=== PATIENT | male | born 1970 | race Caucasian/White ===

== ENCOUNTER 2017-06-29 11:30 | Emergency (ER) | payer SELFPAY ==
[~2017-06-29] VITALS: Ht 172.7 cm; Wt 110.0 kg
[~2017-06-29 11:30] MED LIST: GABA100C4 PO; SERO100T PO; SERO300T PO
[2017-06-29 11:33] VITALS: BP 116/74; PULSE 84; RESP 16; TEMP 98.5; O2SAT 98
[2017-06-29] MEDS ORDERED: SERO100T PO (11:45)
[2017-06-29] MEDS ORDERED: SERO300T PO (11:45)
[2017-06-29] MEDS ORDERED: GABA100C4 PO (11:45)
[2017-06-29] MEDS ORDERED: BUSP5TAB PO (11:45)
--- NOTE | 2017-06-29 11:50 | PD ---
HPI Chief Complaint: Respiratory Symptoms Time Seen by Provider: 11:41 Travel History International Travel<30 days: No Contact w/Intl Traveler<30days: No Traveled to known affect area: No History of Present Illness HPI 46-year-old male presents to the emergency department for evaluation of cold symptoms. Patient states he has had on and off cough and chest congestion for approximately 2-3 weeks. He states his current episode started 1-1/2 days ago. He had subjective fever last night, but did not check it. He has a history of cervical spondylosis and degenerative disc disease. He denies any chest pain or shortness of breath. No syncope or falls. No abdominal pain. No nausea, vomiting, diarrhea. He states that he had pneumonia approximately 5 years ago and is concerned he may have again. Mild severity. No exacerbating or alleviating factors. PFSH Past Medical History Asthma: Yes Bipolar Disorder: Yes Depression: Yes Diminished Hearing: No Hypertension: Yes Musculoskeletal: Yes (CHRONIC BACK AND NECK PAIN) Psychiatric: Yes ?: Not Past Surgical History Appendectomy: Yes Social History Alcohol Use: Yes Tobacco Use: No Substance Use: No Allergies-Medications (Allergen,Severity, Reaction): Coded Allergies: penicillin G (Unverified Allergy, Severe, 06/29/17) Reported Meds & Prescriptions Reported Meds & Active Scripts Active Reported Buspirone (Buspirone HCl) 5 Mg Tab Unknown Dose PO BID Seroquel (Quetiapine Fumarate) 100 Mg Tab 100 Mg PO DAILY Seroquel (Quetiapine Fumarate) 300 Mg Tab 300 Mg PO HS Gabapentin 100 Mg Cap 100 Mg PO TID Review of Systems Except as stated in HPI: all other systems reviewed are Neg Physical Exam Narrative GENERAL: Well-nourished, well-developed male patient, ambulatory. Afebrile. SKIN: Focused skin assessment warm/dry. HEAD: Normocephalic. Atraumatic. ENT: Mucosa pink and moist. No erythema or exudates. No uvular edema. No uvular , palatal, or tonsillar deviation. Airway patent. Nasal turbinates appear normal without nasal blood, purulent drainage or septal hematoma. Bilateral tympanic membranes are clear without erythema or perforation. EYES: No scleral icterus. No injection or drainage. NECK: Supple, trachea midline. No JVD or lymphadenopathy. CARDIOVASCULAR: Regular rate and rhythm without murmurs, gallops, or rubs. RESPIRATORY: Breath sounds equal bilaterally. No accessory muscle use. Lungs sounds are clear to auscultation. GASTROINTESTINAL: Abdomen soft, non-tender, nondistended. MUSCULOSKELETAL: No cyanosis, or edema. BACK: Nontender without obvious deformity. No CVA tenderness. Data Data Last Documented VS Vital Signs Date Time Temp Pulse Resp B/P (MAP) Pulse Ox O2 Delivery O2 Flow Rate FiO2 06/29/17 11:37 16 06/29/17 11:33 98.5 84 116/74 (88) 98 Orders Orders Chest, Single Ap (06/29/17 ) Influenzae A/B Antigen (06/29/17 11:46) MDM Medical Decision Making Medical Screen Exam Complete: Yes Emergency Medical Condition: Yes Medical Record Reviewed: Yes Interpretation(s) Last Impressions Chest X-Ray 06/29/17 0000 Signed Impressions: Service Date/Time: Thursday, June 29, 2017 11:51 - CONCLUSION: No acute disease. Marcia Charles MD Differential Diagnosis URI versus influenza versus pneumonia versus bronchitis Narrative Course 46-year-old male presents to the emergency department for evaluation of cold symptoms that have been on and off for approximately 2-3 weeks, current episode for approximately 1.5 days. Patient appears well on exam. Influenza and chest x-ray are ordered and pending. Influenza is negative. Chest x-ray shows no acute disease. Symptoms are consistent with viral URI. He is instructed to follow primary care physician. He is return here for any acute worsening of symptoms. The patient was discharged in stable condition with instructions, including return instructions and follow up instructions. Diagnosis Primary Impression: Viral upper respiratory infection Referrals: Primary Care Physician call for appointment Patient Instructions: General Instructions, Upper Respiratory Infection (ED) Additional Instructions: Rest. Take Benzonatate capsules as directed as needed for cough. Follow-up with your primary care physician. Return to the emergency department for any acute worsening of symptoms. Med/Other Pt SpecificInfo: Prescription(s) given Scripts Benzonatate (Benzonatate) 200 Mg Cap 200 MG PO TID Y for COUGH, #21 CAP 0 Refills Prov: Barbara Escamilla 06/29/17 Disposition: 01 DISCHARGE HOME Condition: Stable Barbara Escamilla Jun 29, 2017 11:50
--- NOTE | 2017-06-29 11:57 | PD ---
Physical Exam Date Seen by Provider: Jun 29, 2017 Narrative This patient presents with a cough which has waxed and waned over the course of the last month. He is concerned that he has pneumonia. Data Data Last Documented VS Vital Signs Date Time Temp Pulse Resp B/P (MAP) Pulse Ox O2 Delivery O2 Flow Rate FiO2 06/29/17 11:37 16 06/29/17 11:33 98.5 84 116/74 (88) 98 Orders Orders Chest, Single Ap (06/29/17 ) Influenzae A/B Antigen (06/29/17 11:46) MDM Supervised Visit with [facility]: Yes Narrative Course I, Dr. Camarena, have reviewed the advance practice practitioner's documentation and am in agreement, met with the patient face to face, made the diagnosis, and the medical decision making was done by me. *My assessment and Findings: Vital Signs Date Time Temp Pulse Resp B/P (MAP) Pulse Ox O2 Delivery O2 Flow Rate FiO2 06/29/17 11:37 16 06/29/17 11:33 98.5 84 16 116/74 (88) 98 His lungs are clear with good air movement throughout. Please see Barbara Escamilla NP's note for laboratory and radiology results, final diagnosis and disposition Monika Camarena MD Jun 29, 2017 11:57
--- NOTE | 2017-06-29 12:06 | RADRPT ---
EXAM DATE/TIME: 06/29/2017 11:51 [facility] COMPARISON: No previous studies available for comparison. INDICATIONS : Patient complains of cough, congestion, and shortness of breath. MEDICAL HISTORY : Chronic obstructive pulmonary disease. Asthma. SURGICAL HISTORY : None. ENCOUNTER: Initial ACUITY: 3 days PAIN SCORE: 0/10 LOCATION: chest FINDINGS: A single view of the chest demonstrates the lungs to be symmetrically aerated without evidence of mas s, infiltrate or effusion. The cardiomediastinal contours are unremarkable. Osseous structures are intact. CONCLUSION: No acute disease. Marcia Charles MD on June 29, 2017 at 12:04 Board Certified Radiologist. This report was verified electronically.
[2017-06-29] MEDS ORDERED: BENZ1CAP51 PO (12:57)
== END 2017-06-29 13:30 | disposition home or self-care (01) ==
LOC: NEPD 11:30
DX: J06.9 Acute upper respiratory infection, unspecified (principal); F31.9 Bipolar disorder, unspecified
CPT/HCPCS: 71045; 87804; 99284